=== PATIENT | female | born 1960 | race Caucasian/White ===

== ENCOUNTER → 2024-10-28 13:10 | Outpatient (REF) | payer BC, SELFPAY | LOC: HWRAD 13:10 | PROVIDERS: ATTENDING PHYSICIAN Urology; FAMILY PHYSICIAN Family Medicine | DX: N30.10 Interstitial cystitis (chronic) without hematuria (principal); M62.89 Other specified disorders of muscle | CPT/HCPCS: 76770; 76856 ==

== ENCOUNTER → 2024-11-18 14:33 | Outpatient (REF) | payer BC, SELFPAY | LOC: HWRAD 14:33 | PROVIDERS: ATTENDING PHYSICIAN Urology; FAMILY PHYSICIAN Family Medicine | DX: R93.89 Abnormal findings on diagnostic imaging of other specified body structures (principal); D17.9 Benign lipomatous neoplasm, unspecified | CPT/HCPCS: 74170; Q9967 ==